=== PATIENT | female | born 2000 | race Caucasian/White ===

== ENCOUNTER 2022-07-16 17:59 | Emergency (ER) | payer BC, SELFPAY ==
[2022-07-16 18:16] VITALS: BP 116/80; PULSE 93; RESP 18; TEMP 37.1; O2SAT 99; BMI 25.8
[2022-07-16] MEDS: ONDANSETRON 2 MG/ML inj 4 MG IVP (19:45)
[2022-07-16] MEDS: KETOROLAC 15 MG/ML inj IVP (19:45)
[2022-07-16] MEDS: 0.9 % SODIUM CHLORIDE 1000 ml 1,000 ML IV (19:45)
--- NOTE | 2022-07-16 20:24 | ED.GENADULT ---
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 She was seen in urgent care yesterday, and again today. She had been on antibiotics apparently a couple of weeks ago, and then took care of the patient also recently who apparently had C diff which she did not find out about until later. She did return a stool sample earlier today for testing for C diff but does not have those results yet. She was tested for influenza yesterday which was negative. Today earlier at urgent care they ordered this stool sample. She was started on azithromycin. She comes in tonight because she feels like she is getting dehydrated. She has been drinking fluids. She has not had any vomiting today. No fevers. No bloody stools. No travel or exposure to non city water. General health is good. No previous abdominal surgeries. Allergies to penicillins and cefdinir. She denies tobacco use, drinks socially. Denies other drug use. Related Data Home Medications Medication Instructions Recorded Confirmed drospirenone 3 mg-ethinyl 1 tab PO 06/11/22 07/16/22 estradiol 0.02 mg tablet Previous Rx's Medication Instructions Recorded azithromycin 250 mg tablet See Rx Instructions PO .COMPLEX #6 06/11/22 tabs Allergies Allergy/AdvReac Type Severity Reaction Status Date / Time amoxicillin Allergy Severe Rash Verified 07/16/22 10:51 cefdinir Allergy Severe Rash Verified 07/16/22 10:51 Penicillins Allergy Severe Rash Verified 07/16/22 10:51 Review of Systems Status of ROS: Reports: 10 or more systems reviewed and unremarkable except as noted in History and below [facility] Medical History Otitis media Social History Smoking Status: Never smoker Exam Narrative: Exam Narrative: Vital signs as noted above. In general, an alert, well-appearing patient. Head: Normocephalic, atraumatic. Eyes: Pupils are equal reactive. Extraocular movements are full. Conjunctivae are normal. ENT: Mucous membranes are moist. Throat is normal. Neck: Supple without lymphadenopathy. Heart: Regular rate and rhythm. No murmur or rub. Lungs: Clear bilaterally. No increased work of breathing, crackles or wheezes. Abdomen: Abdomen is soft and nondistended, active bowel sounds. Mild diffuse tenderness without rebound guarding or rigidity. Extremities: Well perfused. No edema. No calf tenderness. Pulses intact. Neurologic: Patient is alert and oriented to person and place. Speech is fluent. Face is symmetric. Moves all extremities equally. Affect: Normal. Skin: Warm and dry. Well perfused. Const: Vital Signs, click to edit/add: Vital Signs - 24 hr 07/16/22 18:16 Temperature 98.7 F Pulse Rate [Right Pulse Oximeter] 93 Respiratory Rate 18 Blood Pressure [Ri ght Upper Arm] 116/80 Pulse Oximetry 99 Oxygen Delivery Me thod Room Air Documenting provider has reviewed patient's vital signs: yes Course Course Hospital Course: Plan will be to place an IV and give her some IV fluids. Will check some electrolytes, CBC. Overall she looks clinically well. Likely has a viral gastroenteritis although stool has been sent to test for C diff as well. Those results are not yet available. Absence of bloody stools or fever, would be reasonable for her to try some Imodium to help with diarrhea symptomatically. Otherwise, would recommend hydration, bland diet, symptoms will likely improve over the next few days. C diff can be treated if test results are positive. Labs are overall fairly unremarkable, sodium is slightly low 133, potassium is 3.4. CO2 is 18, consistent with mild dehydration. CRP is elevated at 6. Otherwise, labs are normal. White blood cell count is 7. LFTs are normal. BUN and creatinine are normal. For now, supportive care. Return for high fevers, severe abdominal pain, bloody stools or other worsening. Primary care follow-up if no improvement over the next week with supportive care. C diff pending, treat as appropriate. Vital Signs Vital signs: Initial Vital Signs Temperature 98.7 F 07/16/22 18:16 Temperature Source Temporal Artery Scan 07/16/22 18:16 Pulse Rate 93 07/16/22 18:16 Respiratory Rate 18 07/16/22 18:16 Blood Pressure 116/80 07/16/22 18:16 Blood Pressure Mean 92 07/16/22 18:16 Blood Pressure Position Sitting 07/16/22 18:16 Pulse Oximetry 99 07/16/22 18:16 Oxygen Delivery Method 07/16/22 18:16 Vital Signs Temperature 98.7 F 07/16/22 18:16 Pulse Rate 93 07/16/22 18:16 Respiratory Rate 18 07/16/22 18:16 Blood Pressure 116/80 07/16/22 18:16 Pulse Oximetry 99 07/16/22 18:16 Oxygen Delivery Method 07/16/22 18:16 Temperature 98.7 F 07/16/22 18:16 Pulse Rate 93 07/16/22 18:16 Respiratory Rate 18 07/16/22 18:16 Blood Pressure 116/80 07/16/22 18:16 Pulse Oximetry 99 07/16/22 18:16 Oxygen Delivery Method 07/16/22 18:16 Medical Decision Making Lab Data Labs: Lab Results 07/16/22 07/16/22 Range/Units 19:43 19:43 WBC 7.08 (4.50-11.00) K/uL RBC 4.88 (4.00-5.20) m/uL Hgb 13.7 (12.0-16.0) gm/dL Hct 40.1 (33.0-51.0) % MCV 82 (80-100) fL MCH 28 (26-34) pg MCHC 34 (32-36) gm/dL RDW Coeff of Karthik 12.6 (11.5-15.5) % Plt Count 221 (140-440) K/uL Neut % (Auto) 87.4 H (42.0-72.0) % Lymph % (Auto) 7.2 L (20-44) % [place] % (Auto) 5.1 (0.0-11.0) % Eos % (Auto) 0.1 (0.0-7.0) % Baso % (Auto) 0.1 (0.0-3.0) % Neut # (Auto) 6.20 (1.7-7.0) K/uL Lymph # (Auto) 0.50 L (0.90-2.90) K/uL [place] # (Auto) 0.40 (0.00-0.90) K/UL Eos # (Auto) 0.01 (0.00-0.50) K/uL Baso # (Auto) 0.01 (0.00-0.30) K/uL Sodium 133 L (135-149) mmol/L Potassium 3.4 L (3.6-5.1) mmol/L Chloride 102 (96-114) mmol/L Carbon Dioxide 18 L (20-32) mmol/L BUN 11 (5-24) mg/dL Creatinine 0.5 (0.5-1.5) mg/dL Estimated Creat Clear 166.62 Estimated GFR 137 ml/min Glucose 100 (60-115) mg/dL Calcium 9.1 (8.4-10.6) mg/dL Total Bilirubin 0.7 (0.1-1.5) mg/dL Direct Bilirubin 0.2 (0.0-0.5) mg/dL AST 40 H (12-35) U/L ALT 25 (4-35) U/L Alkaline Phosphatase 61 (40-150) U/L C-Reactive Protein 6.2 H (0.5-1.0) mg/dL Total Protein 8.0 (6.0-8.3) g/dL Albumin 4.5 (3.3-5.0) g/dL Discharge Plan Discharge Clinical Impression: Diarrhea, Dehydration Patient Disposition: Home, Self-Care Condition: Improved Instructions: Dehydration (ED), Acute Diarrhea (ED) Additional Instructions: Continue to work on hydration at home. You can use a few doses of Imodium to help with diarrhea symptomatically as long as you are not running high fevers or having bloody stools. Diarrhea will likely resolve over the next few days, but we will call you if the C diff is positive and needs to be treated differently. If you are not improving over the next week, follow-up with primary care. Return for re-evaluation sooner for high fevers, bloody stools, severe abdominal pain. Prescriptions: No Action drospirenone-ethinyl estradiol 3-0.02 mg tablet 1 tab PO Label Comments: TAKE 1 TABLET BY MOUTH EVERY DAY azithromycin 250 mg tablet See Rx Instructions PO .COMPLEX Qty: 6 0RF Rx Instructions: For 250 mg dose pack: take 500 mg today (day 1), then 250 mg for 4 days (days 2-5) PO Follow Up/Referrals: Provider,Not a Local [Primary Care Provider] - Stand Alone Forms: [facility] Info Instructions
[2022-07-16 20:26] LABS: Basophils Absolute Auto 0.01 K/uL (0.00-0.30); Basophils Percent Auto 0.1 % (0.0-3.0); Eosinophils Absolute Auto 0.01 K/uL (0.00-0.50); Eosinophils Percent Auto 0.1 % (0.0-7.0); Hematocrit 40.1 % (33.0-51.0); Hemoglobin* 13.7 gm/dL (12.0-16.0); Immature Granulocytes Abs Auto 0.01 K/uL (0.00-0.30); Immature Granulocytes Pct Auto 0.1 %; Lymphocytes Percent Auto 7.2 % (20-44); Mean Corpuscular HGB Conc 34 gm/dL (32-36); Mean Corpuscular Hemoglobin 28 pg (26-34); Mean Corpuscular Volume 82 fL (80-100); Monocytes Percent Auto 5.1 % (0.0-11.0); Neutrophils Percent Auto 87.4 % (42.0-72.0); Platelet Count* 221 K/uL (140-440); RDW Coefficient of Variation % 12.6 % (11.5-15.5); Red Blood Count 4.88 m/uL (4.00-5.20); White Blood Count* 7.08 K/uL (4.50-11.00)
[2022-07-16 20:27] LABS: Albumin* 4.5 g/dL (3.3-5.0); Chloride* 102 mmol/L (96-114); Sodium* 133 mmol/L (135-149)
[2022-07-16 20:28] LABS: Potassium* 3.4 mmol/L (3.6-5.1)
[2022-07-16 20:29] LABS: Creatinine* 0.5 mg/dL (0.5-1.5); Est. Creatinine Clearance* 166.62; Estimated Glomerular Filt Rate 137 ml/min
[2022-07-16 20:30] LABS: Aspartate Amino Transferase* 40 U/L (12-35); Bilirubin Direct* 0.2 mg/dL (0.0-0.5); Bilirubin Total* 0.7 mg/dL (0.1-1.5); Blood Urea Nitrogen* 11 mg/dL (5-24); Carbon Dioxide* 18 mmol/L (20-32)
[2022-07-16 20:31] LABS: Alanine Aminotransferase* 25 U/L (4-35); Alkaline Phosphatase* 61 U/L (40-150); Calcium* 9.1 mg/dL (8.4-10.6); Glucose* 100 mg/dL (60-115); Slide Review Reflex No
[2022-07-16 20:33] LABS: C Reactive Protein* 6.2 mg/dL (0.5-1.0)
[2022-07-16 21:09] VITALS: BP 116/80; PULSE 93; RESP 18; TEMP 37.1
== END 2022-07-16 21:10 | disposition home or self-care (01) ==
PROVIDERS: Emergency Provider Emergency Medicine
DX: R19.7 Diarrhea, unspecified (principal); E86.0 Dehydration
CPT/HCPCS: 36415; 80048; 80076; 85025; 86140; 96374; 96375; 99283; 99284; J1885; J2405; J7030

== ENCOUNTER 2022-07-17 09:05 | Outpatient (CLI) | payer BC, SELFPAY ==
[2022-07-17 10:50] LABS: C.Difficile Negative (Negative); CDIFFEPI 027 PRESUMPTIVE NEGATIVE (Negative)
== END 2022-07-17 09:06 | disposition home or self-care (01) ==
PROVIDERS: Visit Provider Physician Assistant
DX: R19.7 Diarrhea, unspecified (principal)
CPT/HCPCS: 87045; 87046; 87427; 87493

== ENCOUNTER 2022-07-30 03:12 | Emergency (ER) | payer BC, SELFPAY ==
--- NOTE | 2022-07-30 03:19 | CRLHL7_ITS ---
For Patients: As a result of the Century Cures Act, medical imaging exams and procedure reports are released immediately into your electronic medical record. You may view this report before your referring provider. If you have questions, please contact your health care provider. INDICATION: Right upper quadrant abdomen pain TECHNIQUE: Ultrasound abdomen limited. Sonographic images of the right upper quadrant were obtained using guerra-scale and color Doppler images. COMPARISON: None. FINDINGS: Liver: Normal in size and echotexture. No masses. No intrahepatic biliary dilatation. Gallbladder: Prominent 1.3 cm stones in the gallbladder neck. Small amount of sludge. No sign of gallbladder wall thickening or pericholecystic fluid. Common bile duct: 3 mm. Pancreas: Unremarkable. Right kidney: Normal in size. Normal echotexture and cortex. No masses, stones, or hydronephrosis. Vasculature: Proximal abdominal aorta and IVC are normal. IMPRESSION: Cholelithiasis with a prominent 1.3 cm stone in the gallbladder neck. No other signs of cholecystitis. The remainder of the exam is unremarkable. Dictated by Alli Palacios MD @ 07/30/2022 5:09:04 AM (Electronically Signed)
[2022-07-30 03:20] VITALS: O2SAT 99
[2022-07-30 03:32] VITALS: BP 131/86; BP 142/92; PULSE 85; PULSE 89; RESP 16; TEMP 36.7; O2SAT 99; BMI 25.8
[2022-07-30 03:47] LABS: Basophils Absolute Auto 0.05 K/uL (0.00-0.30); Basophils Percent Auto 0.5 % (0.0-3.0); Eosinophils Absolute Auto 0.25 K/uL (0.00-0.50); Eosinophils Percent Auto 2.5 % (0.0-7.0); Hematocrit 42.2 % (33.0-51.0); Hemoglobin* 13.8 gm/dL (12.0-16.0); Lymphocytes Absolute Auto 3.15 K/uL (0.90-2.90); Lymphocytes Percent Auto 31.2 % (20-44); Mean Corpuscular HGB Conc 33 gm/dL (32-36); Mean Corpuscular Hemoglobin 27 pg (26-34); Mean Corpuscular Volume 83 fL (80-100); Monocytes Percent Auto 5.1 % (0.0-11.0); Neutrophils Absolute Auto 6.13 K/uL (1.7-7.0); Neutrophils Percent Auto 60.7 % (42.0-72.0); Platelet Count* 301 K/uL (140-440); RDW Coefficient of Variation % 12.8 % (11.5-15.5); Red Blood Count 5.06 m/uL (4.00-5.20)
[2022-07-30 03:48] LABS: Slide Review Reflex No
[2022-07-30 03:49] LABS: Appearance Urine Clear (Clear); Bilirubin Urine Negative (Negative); Blood Urine 3+ (Negative); Color Urine Yellow (Yellow); Glucose Urine Negative (Negative); Ketones Urine Negative (Negative); Leukocyte Esterase Urine Negative (Negative); Nitrite Urine Negative (Negative); Protein Urine Negative (Negative); Specific Gravity Urine 1.025 (1.000-1.030); Urobilinogen Urine 0.2 (0.2-1.0)
[2022-07-30 04:02] VITALS: BP 125/79; PULSE 80; RESP 16; O2SAT 99
[2022-07-30 04:05] LABS: Bacteria Urine Few; HCG Qualitative* Negative (Negative); Squamous Epithelial Cell Urine Moderate (None-Few)
[2022-07-30 04:06] LABS: Fine Granular Casts Urine Few
[2022-07-30 04:07] LABS: Albumin* 4.5 g/dL (3.3-5.0)
[2022-07-30 04:08] LABS: Chloride* 105 mmol/L (96-114); Potassium* 3.7 mmol/L (3.6-5.1); Sodium* 139 mmol/L (135-149)
[2022-07-30 04:10] LABS: Amylase* 97 U/L (18-89); Creatinine* 0.4 mg/dL (0.5-1.5); Est. Creatinine Clearance* 208.27; Estimated Glomerular Filt Rate 144 ml/min
[2022-07-30 04:11] LABS: Alanine Aminotransferase* 52 U/L (4-35); Alkaline Phosphatase* 81 U/L (40-150); Aspartate Amino Transferase* 29 U/L (12-35); Bilirubin Total* 0.6 mg/dL (0.1-1.5); Blood Urea Nitrogen* 10 mg/dL (5-24); Calcium* 9.4 mg/dL (8.4-10.6); Carbon Dioxide* 22 mmol/L (20-32); Glucose* 109 mg/dL (60-115); Total Protein* 8.7 g/dL (6.0-8.3)
[2022-07-30 04:32] VITALS: BP 134/87; PULSE 96; RESP 16; O2SAT 96
--- NOTE | 2022-07-30 04:42 | ED.ABDPAIN ---
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 The pain is moderate and began approximately 12 hours ago. No nausea, vomiting, diarrhea, fever or chills. Pt has been taking over the counter pain medication with some success. Pt has no other pain. Pain does not radiate through to her back. Pain is sharp. No aggrevating or alievieting factors. Pt currently having her mensus. Related Data Home Medications Medication Instructions Recorded Confirmed drospirenone 3 mg-ethinyl 1 tab PO DAILY 06/11/22 07/30/22 estradiol 0.02 mg tablet Previous Rx's Medication Instructions Recorded triamcinolone acetonide 0.1 % 1 applic topical BID #15 grams 07/27/22 topical cream Allergies Allergy/AdvReac Type Severity Reaction Status Date / Time amoxicillin Allergy Severe Rash Verified 07/30/22 03:34 cefdinir Allergy Severe Rash Verified 07/30/22 03:34 Penicillins Allergy Severe Rash Verified 07/30/22 03:34 Review of Systems Status of ROS Reports: 10 or more systems reviewed and unremarkable except as noted in History and below [facility] Medical History Otitis media Surgical History No significant past surgical history Social History Smoking Status: Never smoker Do you use any of these nicotine containing products: None Second hand tobacco smoke exposure: No How often do you have a drink containing alcohol: never AUDIT-C Alcohol total score: 0 Non-prescribed substance use: denies use Exam Narrative: Exam Narrative: EXAM GENERAL: Patient appears comfortable and well. EYES: No scleral icterus. THYROID: no thyroid nodules or thyromegaly. LYMPH: No supraclavicular or cervical lymphadenopathy. SKIN: Visible skin seen during exam normal or with benign process only. EXT: No dependent lower extremity pedal edema. HEART: Regular rate and rhythm with no murmurs, rubs, or gallops. LUNGS: Clear to auscultation bilaterally with no crackles or wheezes. ABD: Soft, non tender, non distended. PSYCH: Good eye contact, speech is not pressured. Const: Vital Signs, click to edit/add: Vital Signs - 24 hr 07/30/22 03:32 07/30/22 03:20 07/30/22 03:32 Temperature 98.0 F Pulse Rate 85 Pulse Rate [Right Pulse Oximeter] 89 Respiratory Rate 16 16 Blood Pressure 131/86 Blood Pressure [Ri ght Upper Arm] 142/92 H Pulse Oximetry 99 99 99 Oxygen Delivery Me thod Room Air 07/30/22 04:02 Temperature Pulse Rate 80 Pulse Rate [Right Pulse Oximeter] Respiratory Rate 16 Blood Pressure 125/79 Blood Pressure [Ri ght Upper Arm] Pulse Oximetry 99 Oxygen Delivery Me thod Course Course Hospital Course: Pt seen and examined. US of RUQ ordered allong with CBC, CMP, Urine preg, ua and amylase. Vital Signs Vital signs: Initial Vital Signs Pulse Oximetry 99 07/30/22 03:20 Vital Signs Pulse Oximetry 99 07/30/22 03:20 Temperature 98.0 F 07/30/22 03:32 Pulse Rate 80 07/30/22 04:02 Respiratory Rate 16 07/30/22 04:02 Blood Pressure 125/79 07/30/22 04:02 Pulse Oximetry 99 07/30/22 04:02 Oxygen Delivery Method 07/30/22 03:32 MDM - Abdominal Pain MDM Narrative Medical decision making narrative: Pt is a 22 year old woman who presents with RUQ Pain of approx. 12 hours duration. CBC shows a normal wbc, ALT mildly elevated. No other significant findings on laboratory. Pt's US shows mild sludge with a small stone. No gallbladder wall thickening. Pt exam normal as are her vital signs. Pt will be treated with follow up, tylenol, motrin, rest and fluids. Avoidance of fatty foods. Differential Diagnosis Differential diagnosis: Likely abdominal pain, acute appendicitis, calculus of kidney, diverticulitis, endometriosis, gastroenteritis, pancreatitis and small bowel obstruction Lab Data Labs: Lab Results 07/30/22 07/30/22 07/30/22 Range/Units 03:20 03:20 03:20 WBC 10.10 (4.50-11.00) K/uL RBC 5.06 (4.00-5.20) m/uL Hgb 13.8 (12.0-16.0) gm/dL Hct 42.2 (33.0-51.0) % MCV 83 (80-100) fL MCH 27 (26-34) pg MCHC 33 (32-36) gm/dL RDW Coeff of Karthik 12.8 (11.5-15.5) % Plt Count 301 (140-440) K/uL Neut % (Auto) 60.7 (42.0-72.0) % Lymph % (Auto) 31.2 (20-44) % [place] % (Auto) 5.1 (0.0-11.0) % Eos % (Auto) 2.5 (0.0-7.0) % Baso % (Auto) 0.5 (0.0-3.0) % Neut # (Auto) 6.13 (1.7-7.0) K/uL Lymph # (Auto) 3.15 H (0.90-2.90) K/uL [place] # (Auto) 0.50 (0.00-0.90) K/UL Eos # (Auto) 0.25 (0.00-0.50) K/uL Baso # (Auto) 0.05 (0.00-0.30) K/uL Sodium 139 (135-149) mmol/L Potassium 3.7 (3.6-5.1) mmol/L Chloride 105 (96-114) mmol/L Carbon Dioxide 22 (20-32) mmol/L BUN 10 (5-24) mg/dL Creatinine 0.4 L (0.5-1.5) mg/dL Estimated Creat Clear 208.27 Estimated GFR 144 ml/min Glucose 109 (60-115) mg/dL Calcium 9.4 (8.4-10.6) mg/dL Total Bilirubin 0.6 (0.1-1.5) mg/dL AST 29 (12-35) U/L ALT 52 H (4-35) U/L Alkaline Phosphatase 81 (40-150) U/L Total Protein 8.7 H (6.0-8.3) g/dL Albumin 4.5 (3.3-5.0) g/dL Amylase 97 H (18-89) U/L HCG, Qual (Negative) Urine Color Yellow (Yellow) Urine Appearance Clear (Clear) Urine pH 6.0 (5.0-8.5) Ur Specific [place] 1.025 (1.000-1.030) Urine Protein Negative (Negative) Urine Glucose (UA) Negative (Negative) Urine Ketones Negative (Negative) Urine Blood 3+ A (Negative) Urine Nitrite Negative (Negative) Urine Bilirubin Negative (Negative) Urine Urobilinogen 0.2 (0.2-1.0) Ur Leukocyte Esterase Negative (Negative) Urine RBC 2-5 A (0-2) Urine WBC 2-5 (0-5) Ur Squamous Epith Cells Moderate A (None-Few) Urine Bacteria Few A (None) Fine Granular Casts Few A (None) 07/30/22 Range/Units 03:20 WBC (4.50-11.00) K/uL RBC (4.00-5.20) m/uL Hgb (12.0-16.0) gm/dL Hct (33.0-51.0) % MCV (80-100) fL MCH (26-34) pg MCHC (32-36) gm/dL RDW Coeff of Karthik (11.5-15.5) % Plt Count (140-440) K/uL Neut % (Auto) (42.0-72.0) % Lymph % (Auto) (20-44) % [place] % (Auto) (0.0-11.0) % Eos % (Auto) (0.0-7.0) % Baso % (Auto) (0.0-3.0) % Neut # (Auto) (1.7-7.0) K/uL Lymph # (Auto) (0.90-2.90) K/uL [place] # (Auto) (0.00-0.90) K/UL Eos # (Auto) (0.00-0.50) K/uL Baso # (Auto) (0.00-0.30) K/uL Sodium (135-149) mmol/L Potassium (3.6-5.1) mmol/L Chloride (96-114) mmol/L Carbon Dioxide (20-32) mmol/L BUN (5-24) mg/dL Creatinine (0.5-1.5) mg/dL Estimated Creat Clear Estimated GFR ml/min Glucose (60-115) mg/dL Calcium (8.4-10.6) mg/dL Total Bilirubin (0.1-1.5) mg/dL AST (12-35) U/L ALT (4-35) U/L Alkaline Phosphatase (40-150) U/L Total Protein (6.0-8.3) g/dL Albumin (3.3-5.0) g/dL Amylase (18-89) U/L HCG, Qual Negative (Negative) Urine Color (Yellow) Urine Appearance (Clear) Urine pH (5.0-8.5) Ur Specific [place] (1.000-1.030) Urine Protein (Negative) Urine Glucose (UA) (Negative) Urine Ketones (Negative) Urine Blood (Negative) Urine Nitrite (Negative) Urine Bilirubin (Negative) Urine Urobilinogen (0.2-1.0) Ur Leukocyte Esterase (Negative) Urine RBC (0-2) Urine WBC (0-5) Ur Squamous Epith Cells (None-Few) Urine Bacteria (None) Fine Granular Casts (None) Discharge Plan Discharge Clinical Impression: Abdominal pain Patient Disposition: Home, Self-Care Condition: Stable Instructions: Abdominal Pain (ED) Activity Level: No Restrictions Discharge Diet: Regular Prescriptions: No Action drospirenone-ethinyl estradiol 3-0.02 mg tablet 1 tab PO DAILY Label Comments: TAKE 1 TABLET BY MOUTH EVERY DAY triamcinolone acetonide 0.1 % cream 1 applic topical BID Qty: 15 0RF Follow Up/Referrals: Provider,Not a Local [Primary Care Provider] - Stand Alone Forms: [facility] Info Instructions
[2022-07-30 05:03] VITALS: BP 142/92; PULSE 89; RESP 16; TEMP 36.7
== END 2022-07-30 05:05 | disposition home or self-care (01) ==
PROVIDERS: Emergency Provider Internal Medicine
DX: R10.11 Right upper quadrant pain (principal)
CPT/HCPCS: 36415; 76705; 80053; 81003; 81015; 82150; 84703; 85025; 87086; 94761; 99283; 99284

== ENCOUNTER 2022-08-17 09:48 | Outpatient (CLI) | payer BC, SELFPAY ==
[2022-08-17 10:35] LABS: Mono Screen* Negative (Negative)
[2022-08-17 13:54] LABS: Amylase* 78 U/L (18-89); Lipase* 148 U/L (23-300)
[2022-08-17 13:55] LABS: C Reactive Protein* 1.4 mg/dL (0.5-1.0)
[2022-08-18 21:12] LABS: Hep A Ab, IgM Negative (Negative); Hep B Core Ab, IgM Negative (Negative); Hep B Surface Antigen Negative (Negative); Hep C Ab by CIA Index 0.05 IV; Hep C Ab by CIA Interp Negative (Negative)
[2022-08-19 00:13] LABS: HIV Serologic Interpretation HIV Abs Neg; HIV-1 Antibody Negative (Negative); HIV-2 Antibody Negative (Negative)
[2022-08-19 14:47] LABS: HLA-B27 Negative (Negative)
[2022-08-19 15:49] LABS: Anti-Nuclear Ab(ANA)IgG ELISA Detected (None Detected)
[2022-08-19 18:52] LABS: HIV-1 Qnt NAAT copies/mL Not Detected log cpy/mL
[2022-08-21 00:28] LABS: Antinuclear AntibodyHEp-2 <1:80 (<1:80)
== END 2022-08-17 09:49 | disposition home or self-care (01) ==
PROVIDERS: Visit Provider Family Medicine
DX: R21 Rash and other nonspecific skin eruption (principal); R68.89 Other general symptoms and signs; R53.83 Other fatigue; R59.0 Localized enlarged lymph nodes; K80.20 Calculus of gallbladder without cholecystitis without obstruction
CPT/HCPCS: 80074; 82150; 83690; 84443; 86039; 86140; 86308; 86701; 86702; 86812; 87536

== ENCOUNTER 2022-08-25 13:57 | Outpatient (CLI) | payer BC, SELFPAY ==
--- NOTE | 2022-08-25 14:00 | CRLHL7_ITS ---
For Patients: As a result of the Century Cures Act, medical imaging exams and procedure reports are released immediately into your electronic medical record. You may view this report before your referring provider. If you have questions, please contact your health care provider. Indication: Right neck lump Technique: Grayscale and color Doppler ultrasound of the right side of the neck performed. Comparison: None Findings: Right cervical lymph node is present node measuring 2.0 x 0.5 x 1.1 cm. Normal internal blood flow and normal central fatty hilum. No fluid collections. Impression: Mildly reactive right cervical lymph node. Dictated by Brenton Parra MD @ 08/25/2022 2:54:10 PM (Electronically Signed)
== END 2022-08-25 13:58 | disposition home or self-care (01) ==
PROVIDERS: PCP Family Medicine; Visit Provider Family Medicine
DX: R22.1 Localized swelling, mass and lump, neck (principal); R59.0 Localized enlarged lymph nodes
CPT/HCPCS: 76536

== ENCOUNTER 2023-02-02 13:20 | Outpatient (CLI) | payer BC, SELFPAY ==
[2023-02-05 16:33] LABS: Lyme ELISA Reflex 0.55 IV (<=0.90)
== END 2023-02-02 13:21 | disposition home or self-care (01) ==
PROVIDERS: PCP Family Medicine; Visit Provider Family Medicine
DX: R53.83 Other fatigue (principal); R59.0 Localized enlarged lymph nodes
CPT/HCPCS: 80053; 86140; 86618; 86663